=== PATIENT | female | born 1960 | race Caucasian/White ===

== ENCOUNTER → 2017-06-30 | Outpatient (CLI) | payer OTHER | LOC: FIMAGING 14:57 | PROVIDERS: ATTEND Internal Medicine | DX: Z12.31 Encounter for screening mammogram for malignant neoplasm of breast (principal) | CPT/HCPCS: G0202 ==

== ENCOUNTER → 2018-05-08 | Outpatient (CLI) | payer OTHER | LOC: BMCIMAGING 14:37 | PROVIDERS: ATTEND Internal Medicine | DX: M79.671 Pain in right foot (principal); Z87.81 Personal history of (healed) traumatic fracture ==

== ENCOUNTER → 2018-07-11 | Outpatient (CLI) | payer OTHER | LOC: FIMAGING 15:01 | PROVIDERS: ATTEND Internal Medicine | DX: Z12.31 Encounter for screening mammogram for malignant neoplasm of breast (principal) ==